=== PATIENT | female | born 1980 | race Caucasian/White ===

== ENCOUNTER 2016-07-27 12:42 | Emergency (ER) | payer OTHER ==
[~2016-07-27] VITALS: Ht 160 cm; Wt 70.3 kg
[2016-07-27] MEDS ORDERED: LEVOTHYROXINE 0.15MG PO (13:06)
[2016-07-27] MEDS ORDERED: [UNRECOGNIZED DRUG - OTHER] PO (13:07)
[2016-07-27] MEDS ORDERED: MOBIC15 MG PO (15:22)
[2016-07-27 15:46] VITALS: BP 125/71
== END 2016-07-27 15:46 | disposition home or self-care (01) ==
LOC: ER 12:42
DX: S16.1XXA Strain of muscle, fascia and tendon at neck level, initial encounter (principal); M25.511 Pain in right shoulder; M25.531 Pain in right wrist; E03.9 Hypothyroidism, unspecified; V63.6XXA Passenger in heavy transport vehicle injured in collision with car, pick-up truck or van in traffic accident, initial encounter; Y93.I9 Activity, other involving external motion; Y92.488 Other paved roadways as the place of occurrence of the external cause; Y99.8 Other external cause status